=== PATIENT | female | born 1955 | race Caucasian/White ===

== ENCOUNTER → 2016-09-09 | Outpatient (CLI) | payer OTHER ==
--- NOTE | 2016-09-10 08:42 | RAD ---
DATE: 09/09/2016 EXAM: DIGITAL SCREEN BILAT W/CAD HISTORY: Routine screening COMPARISON: 09/10/2013 This study was interpreted with the benefit of Computerized Aided Detection (CAD). FINDINGS: Breast Density: HETERO The breast parenchyma Is heterogeneously dense, which could reduce sensitivity of mammography. Breast parenchyma level C. Small asymmetry identified in the right outer breast and in the left mid breast best seen on the cc views. IMPRESSION: Small asymmetry identified in the right outer breast and in the left mid breast. Recommend spot compression views of the right and left breast in cc views. A ML is recommended. BI-RADS CATEGORY: 0 INCOMPLETE: NEEDS ADDITIONAL IMAGING EVALUATION AND/OR PRIOR MAMMOGRAMS FOR COMPARISON. RECOMMENDED FOLLOW-UP: ADD ADDITIONAL IMAGING PQRS compliance statement: Patient information was entered into a reminder system with a target due date immediate recall for the next mammogram. Mammography is a sensitive method for finding small breast cancers, but it does not detect them all and is not a substitute for careful clinical examination. A negative mammogram does not negate a clinically suspicious finding and should not result in delay in biopsying a clinically suspicious abnormality. "Our facility is accredited by the [employer] Mammography Program."
== END | disposition home or self-care (01) ==
LOC: MAMMO 10:54
PROVIDERS: ATTEND Family Medicine
DX: Z12.31 Encounter for screening mammogram for malignant neoplasm of breast (principal)
CPT/HCPCS: G0202; 77067

== ENCOUNTER → 2016-09-16 | Outpatient (CLI) | payer OTHER ==
--- NOTE | 2016-09-16 10:08 | RAD ---
DATE: 09/16/2016 EXAM: DIGITAL DIAGNOSTIC BILATERAL HISTORY: Suspicious screening study COMPARISON: 09/09/2016, 09/10/2013 This study was interpreted with the benefit of Computerized Aided Detection (CAD). FINDINGS: The breasts are heterogeneously dense. Spot compression cc views of the areas of concern in the right and left breast described on the screening study were performed. Normal heterogeneous fibroglandular shadows are present. No breast mass or nodule is seen. The fibroglandular pattern in these regions is similar to that seen on the 09/10/2013 exam. Straight mediolateral views of both breasts show no evidence of a mass. The appearance on the screening study appears to have been due to summation artifacts. IMPRESSION: There is no mammographic evidence of malignancy in either breast. BI-RADS CATEGORY: 1 NEGATIVE RECOMMENDED FOLLOW-UP: 12M 12 MONTH FOLLOW-UP PQRS compliance statement: Patient information was entered into a reminder system with a target due date for the next mammogram. Mammography is a sensitive method for finding small breast cancers, but it does not detect them all and is not a substitute for careful clinical examination. A negative mammogram does not negate a clinically suspicious finding and should not result in delay in biopsying a clinically suspicious abnormality. "Our facility is accredited by the [employer] Mammography Program."
== END | disposition home or self-care (01) ==
LOC: MAMMO 09:38
PROVIDERS: ATTEND Family Medicine
DX: R92.8 Other abnormal and inconclusive findings on diagnostic imaging of breast (principal)
CPT/HCPCS: G0204; 77066